=== PATIENT | female | born 1995 | race African-American/Black ===

== ENCOUNTER 2025-05-05 11:20 | Emergency (ER) | payer OTHER ==
[~2025-05-05] VITALS: Ht 170.2 cm; Wt 90.0 kg
[2025-05-05 11:59] VITALS: TEMP 97.9
[2025-05-05] MEDS: IBUPROFEN 600 MG TABLET PO ONE (12:32)
[2025-05-05] MEDS: ACETAMINOPHEN 500 MG TABLET PO ONE (12:33)
[2025-05-05] MEDS ORDERED: ACET-3385 PO (13:01)
[2025-05-05] MEDS ORDERED: IBUP-1492 PO (13:01)
[2025-05-05 13:27] VITALS: BP 115/72; PULSE 95; RESP 18; O2SAT 99
== END 2025-05-05 13:28 | disposition home or self-care (01) ==
LOC: EMS 11:20
DX: S16.1XXA Strain of muscle, fascia and tendon at neck level, initial encounter (principal); V43.52XA Car driver injured in collision with other type car in traffic accident, initial encounter; Y93.89 Activity, other specified; Y92.410 Unspecified street and highway as the place of occurrence of the external cause; Y99.8 Other external cause status
CPT/HCPCS: 99283